=== PATIENT | male | born 1945 | race Caucasian/White ===

== ENCOUNTER 2019-12-24 14:02 | Outpatient (RCR) | payer MEDICARE | END 2020-02-15 | disposition home or self-care (01) | PROVIDERS: ATTEND Psychiatry & Neurology Neurology | DX: G20 Parkinson's disease (principal); M35.3 Polymyalgia rheumatica; F32.9 Major depressive disorder, single episode, unspecified; E11.9 Type 2 diabetes mellitus without complications; G91.9 Hydrocephalus, unspecified; I10 Essential (primary) hypertension; R29.6 Repeated falls; R26.9 Unspecified abnormalities of gait and mobility; Z98.1 Arthrodesis status; Z85.53 Personal history of malignant neoplasm of renal pelvis ==

== ENCOUNTER 2020-01-07 06:00 | Outpatient (RCR) | payer MEDICARE | END 2020-02-05 | disposition home or self-care (01) | LOC: CR3 06:00 | PROVIDERS: ATTEND Family Medicine | DX: Z29.8 Encounter for other specified prophylactic measures (principal) ==